=== PATIENT | male | born 1990 | race American Indian/Alaskan Native ===

== ENCOUNTER 2017-08-12 22:23 | Emergency (ER) | payer SELFPAY ==
[2017-08-12 22:41] VITALS: BP 120/69
--- NOTE | 2017-08-12 23:21 | XRay Report ---
FINAL REPORT EXAM: XR CHEST ROUTINE 2V HISTORY: cough and congestion TECHNIQUE: Two view chest PA and lateral PRIORS: None. FINDINGS: Cardiac and mediastinal contours are unremarkable. No focal pulmonary infiltrate is identified. No pleural fluid collection seen. Pulmonary vasculature is unremarkable. IMPRESSION: Negative two-view chest
[2017-08-13] MEDS ORDERED: DELTASONE PO ONE (02:48)
[2017-08-13] MEDS ORDERED: MOTRIN PO ONE (02:48)
[2017-08-13] MEDS ORDERED: PROVENTIL IH ONE (02:48)
--- NOTE | 2017-08-13 03:14 | Emergency Department Report ---
- General Chief Complaint: Upper Respiratory Infection Stated Complaint: COUGH, CONGESTION; RT CP WITH COUGH Time Seen by Provider: 08/13/17 02:29 Source: patient Mode of arrival: Ambulatory Limitations: No Limitations - History of Present Illness Initial Comments: pti is a 26 y/o aam who presents for right lateral chest wall pain with cough x 1 month cough is non productive there is no fever /chills no n/v , pain decribed as 5/10 sharp with deep inspiration, there is no wheezing or sob MD Complaint: fever, cough, rhinorrhea, nasal congestion -: Sudden Severity: moderate Severity scale (0 -10): 4 Quality: sharp Consistency: intermittent Improves With: nothing Worsens With: activity Associated Symptoms: rhinorrhea, nasal congestion, cough - Related Data Previous Rx's Medication Instructions Recorded Last Taken Type ALBUTEROL Inhaler [ProAir HFA 2 puff IH QID PRN #25 inhalation 08/13/17 Unknown Rx Inhaler] Azithromycin [Zithromax Z-CHRISTIAN] 250 mg PO DAILY #6 tab 08/13/17 Unknown Rx Ibuprofen 800 mg PO TID PRN #30 tablet 08/13/17 Unknown Rx predniSONE [Deltasone] 40 mg PO QDAY #10 tab 08/13/17 Unknown Rx Allergies Allergy/AdvReac Type Severity Reaction Status Date / Time No Known Allergies Allergy Unverified 08/12/17 22:51 ED Review of Systems ROS: Stated complaint: COUGH, CONGESTION; RT CP WITH COUGH Other details as noted in HPI Constitutional: denies: chills, fever Eyes: denies: eye pain, eye discharge, vision change ENT: throat pain, dental pain. denies: ear pain, epistaxis Respiratory: denies: cough, shortness of breath, wheezing Cardiovascular: denies: chest pain, palpitations Endocrine: no symptoms reported Gastrointestinal: denies: abdominal pain, nausea, diarrhea Genitourinary: denies: urgency, dysuria Musculoskeletal: denies: back pain, joint swelling, arthralgia Skin: denies: rash, lesions Neurological: denies: headache, weakness, paresthesias Psychiatric: denies: anxiety, depression Hematological/Lymphatic: denies: easy bleeding, easy bruising ED Past Medical Hx - Past Medical History Previous Medical History?: No - Surgical History Past Surgical History?: No - Social History Smoking Status: Never Smoker Substance Use Type: None - Medications Home Medications: Home Medications Medication Instructions Recorded Confirmed Last Taken Type ALBUTEROL Inhaler [ProAir HFA 2 puff IH QID PRN #25 inhalation 08/13/17 Unknown Rx Inhaler] Azithromycin [Zithromax Z-CHRISTIAN] 250 mg PO DAILY #6 tab 08/13/17 Unknown Rx Ibuprofen 800 mg PO TID PRN #30 tablet 08/13/17 Unknown Rx predniSONE [Deltasone] 40 mg PO QDAY #10 tab 08/13/17 Unknown Rx ED Physical Exam - General Limitations: No Limitations General appearance: alert, in no apparent distress - Head Head exam: Present: atraumatic, normocephalic, normal inspection - Eye Eye exam: Present: normal appearance, PERRL, EOMI Pupils: Present: normal accommodation - ENT ENT exam: Present: normal exam, normal orophraynx, mucous membranes moist, TM's normal bilaterally. Absent: normal external ear exam - Neck Neck exam: Present: normal inspection, full ROM. Absent: tenderness, meningismus, lymphadenopathy, thyromegaly - Respiratory Respiratory exam: Present: normal lung sounds bilaterally. Absent: respiratory distress, wheezes, stridor, chest wall tenderness - Cardiovascular Cardiovascular Exam: Present: regular rate, normal rhythm, normal heart sounds. Absent: systolic murmur, diastolic murmur, rubs, gallop - GI/Abdominal GI/Abdominal exam: Present: soft, normal bowel sounds. Absent: distended, tenderness, guarding, rebound, rigid, organomegaly, mass, bruit, pulsatile mass , hernia - Rectal Rectal exam: Present: deferred - Extremities Exam Extremities exam: Present: normal inspection, full ROM, normal capillary refill , pedal edema. Absent: tenderness - Back Exam Back exam: Present: normal inspection - Neurological Exam Neurological exam: Present: alert, oriented X3 - Psychiatric Psychiatric exam: Present: normal affect, normal mood - Skin Skin exam: Present: warm, dry, intact, normal color. Absent: rash ED Course Vital Signs 08/12/17 08/12/17 22:36 22:46 Temperature 98.1 F 98.1 F Pulse Rate 59 L 63 Respiratory 18 18 Rate Blood Pressure 120/69 120/69 O2 Sat by Pulse 100 100 Oximetry ED Medical Decision Making - Radiology Data this is bronchitis, symptoms improved with neb and steroid, cxr: no infiltrates no opacities, plan: albuterol inhaler, prednisone, ibuprofen datpaemanuel, follow up with pcp in 2-3 days pt verbalized agreement and understanding of same. Critical care attestation.: If time is entered above; I have spent that time in minutes in the direct care of this critically ill patient, excluding procedure time. ED Disposition Clinical Impression: Bronchitis, Chest wall pain URI (upper respiratory infection) Qualifiers: URI type: unspecified viral URI Qualified Code(s): J06.9 - Acute upper respiratory infection, unspecified Disposition: TO HOME OR SELFCARE Is pt being admited?: Yes Does the pt Need Aspirin: Yes Condition: Fair Instructions: Chronic Bronchitis (ED), Chest Pain (ED) Prescriptions: ALBUTEROL Inhaler [ProAir HFA Inhaler] 2 puff IH QID PRN #25 inhalation PRN Reason: Shortness Of Breath Azithromycin [Zithromax Z-CHRISTIAN] 250 mg PO DAILY #6 tab Ibuprofen 800 mg PO TID PRN #30 tablet PRN Reason: pain fever predniSONE [Deltasone] 40 mg PO QDAY #10 tab Referrals: BETH VILLASENOR MD [Primary Care Provider] - 3-5 Days
== END 2017-08-13 03:34 | disposition home or self-care (01) ==
LOC: ED 22:23
DX: J40 Bronchitis, not specified as acute or chronic (principal); J06.9 Acute upper respiratory infection, unspecified
CPT/HCPCS: 71046; 94640; 99283; J7512